=== PATIENT | female | born 1980 | race Caucasian/White ===

== ENCOUNTER 2018-12-01 14:52 | Emergency (ER) | payer MEDICAID ==
[2018-12-01] MEDS: DIPHENHYDRAMINE 50 MG INJ IV (15:56)
[2018-12-01] MEDS: KETOROLAC 30 MG INJ IV (15:57)
[2018-12-01] MEDS: SOD CHLORIDE 0.9% 1,000 ML IV (15:57)
[2018-12-01] MEDS: ONDANSETRON 4 MG INJ IV (15:57)
[2018-12-01 16:13] LABS: ADD UMIC YES; UR ASCORBIC ACID NEGATIVE (NEGATIVE); UR BILIRUBIN (Dip) NEGATIVE (NEGATIVE); UR BLOOD (Dip) 2+ mg/dL (NEGATIVE); UR CLARITY CLEAR (CLEAR); UR COLOR YELLOW (YELLOW); UR GLUCOSE (Dip) NEGATIVE (NEGATIVE); UR KETONES (Dip) NEGATIVE (NEGATIVE); UR LEUKOCYTE ESTERASE (Dip) NEGATIVE Leu/ul (NEGATIVE); UR NITRITE (Dip) NEGATIVE (NEGATIVE); UR RBC 6 /HPF (0-5); UR SPECIFIC GRAVITY (Dip) 1.012 (1.003-1.030); UR TOTAL PROTEIN (Dip) NEGATIVE (NEGATIVE); UR UROBILINOGEN (Dip) NEGATIVE (NEGATIVE); UR WBC 0 /HPF (0-5)
== END 2018-12-01 17:13 | disposition home or self-care (01) ==
LOC: FTE 14:52
DX: R51 Headache (principal); R11.0 Nausea
CPT/HCPCS: 70450; 81001; 81025; 96374; 96375; 99285-25